=== PATIENT | female | born 1975 | race African-American/Black ===

== ENCOUNTER 2017-07-20 23:46 | Emergency (ER) | payer SELFPAY ==
[~2017-07-20] VITALS: Ht 162.6 cm; Wt 111.2 kg
[~2017-07-20 23:46] MED LIST: AMIO200T42 PO; AMLO5TAB2 PO; ASPI-515 NG; CARV12.52 PO; CARV12.543 PO; DOCU-131 PO; DOXY100T PO; FURO-92 PO; HYDR-3237 PO; HYDR12.547 PO; LISI-170 PO; METO-282 PO; OXYCODONE PO; POTA20TA14 PO; VITAMIN D PO; WARF-36 PO
[2017-07-20 23:47] VITALS: BP 164/100
[2017-07-21] MEDS ORDERED: FLUORESCEIN OPHTHALMIC 1 MG STRIP ONE (00:03)
[2017-07-21] MEDS ORDERED: PROPARACAINE OPHTH 0.5%, 15ML ONE (00:03)
[2017-07-21] MEDS ORDERED: FLUORESCEIN OPHTHALMIC 1 MG STRIP EACHEYE ONE (00:30)
[2017-07-21] MEDS ORDERED: PROPARACAINE OPHTH 0.5%, 15ML EACHEYE ONE (00:30)
== END 2017-07-21 00:41 | disposition home or self-care (01) ==
LOC: ED 07-21 00:20
DX: L03.213 Periorbital cellulitis (principal); H10.022 Other mucopurulent conjunctivitis, left eye; I10 Essential (primary) hypertension; F32.9 Major depressive disorder, single episode, unspecified; Z95.2 Presence of prosthetic heart valve
CPT/HCPCS: 99283

== ENCOUNTER → 2018-02-01 | Outpatient (CLI) | payer MEDICAID ==
[~2018-02-01] MED LIST changes: -AMLO5TAB2 PO; +AMLO5TAB7 PO
== END | disposition home or self-care (01) ==
LOC: CFH 13:04
PROVIDERS: ATTEND Internal Medicine Cardiovascular Disease
DX: I08.0 Rheumatic disorders of both mitral and aortic valves (principal); I11.9 Hypertensive heart disease without heart failure; I42.0 Dilated cardiomyopathy; R06.02 Shortness of breath; Z95.2 Presence of prosthetic heart valve
CPT/HCPCS: 93306

== ENCOUNTER → 2018-08-16 | Outpatient (CLI) | payer MEDICAID ==
[~2018-08-16] MED LIST changes: +AMLO-150 PO; -AMLO5TAB7 PO
== END | disposition home or self-care (01) ==
LOC: CVU 08:46
PROVIDERS: ATTEND Internal Medicine Cardiovascular Disease
DX: I08.8 Other rheumatic multiple valve diseases (principal); I10 Essential (primary) hypertension
CPT/HCPCS: 93306

== ENCOUNTER 2020-09-04 15:46 | Emergency (ER) | payer BC, OTHER ==
[~2020-09-04] VITALS: Ht 162.6 cm; Wt 121.8 kg
[~2020-09-04 15:46] MED LIST changes: -ASPI-515 NG; +ASPI-963 NG
[2020-09-04 15:49] VITALS: BP 185/89
[2020-09-04] MEDS ORDERED: OXYcodone/APAP 5/325MG TABLET ONE (15:59)
[2020-09-04] MEDS ORDERED: OXYcodone/APAP 5/325MG TABLET PO ONE (16:00)
--- NOTE | 2020-09-04 16:03 | NUR ---
[employer] ANALYST PER MAR.
== END 2020-09-04 17:09 | disposition home or self-care (01) ==
LOC: ED 16:23
DX: K04.7 Periapical abscess without sinus (principal); I11.0 Hypertensive heart disease with heart failure; I50.9 Heart failure, unspecified
CPT/HCPCS: 99283

== ENCOUNTER 2020-12-18 13:25 | Emergency (ER) | payer OTHER ==
[~2020-12-18] VITALS: Ht 162.6 cm; Wt 116.0 kg
[2020-12-18 14:10] VITALS: BP 114/75
== END 2020-12-18 14:35 | disposition home or self-care (01) ==
LOC: ED 14:14
DX: U07.1 COVID-19 (principal); J06.9 Acute upper respiratory infection, unspecified; I10 Essential (primary) hypertension
CPT/HCPCS: 99283; U0003; U0005

== ENCOUNTER 2020-12-26 11:43 | Emergency (ER) | payer OTHER ==
[~2020-12-26] VITALS: Ht 162.6 cm; Wt 112.2 kg
[2020-12-26] MEDS ORDERED: SODIUM CHLORIDE 0.9% 1,000ML IVBOLUS ONE (12:00)
[2020-12-26 12:26] LABS: BASOPHILS % (AUTO) 1 % (0-1); EOSINOPHILS % (AUTO) 1 % (1-7); LYMPHOCYTES % (AUTO) 31 % (22-44); MEAN CORPUSCULAR HEMOGLOBIN 31.2 pg (27.0-34.8); MEAN CORPUSCULAR HGB CONC 34.5 g/dL (32.4-35.8); MEAN PLATELET VOLUME 7.6 fL (7.4-10.4); MONOCYTES % (AUTO) 11 % (2-9); NEUTROPHILS % (AUTO) 56 % (42-75); PLATELET COUNT 524 x10^3/uL (130-400); RED BLOOD COUNT 4.33 x10^6/uL (3.82-5.3); RED CELL DISTRIBUTION WIDTH 13.5 % (9.6-15.2)
[2020-12-26 12:37] LABS: ANION GAP 10 mmol/L (5-15); CALCIUM 9.6 mg/dL (8.5-10.1); CHLORIDE 107 mmol/L (98-107)
[2020-12-26 12:39] LABS: ALANINE AMINOTRANSFERASE 27 U/L (12-78); ALKALINE PHOSPHATASE 88 U/L (45-117); BILIRUBIN,TOTAL 0.5 mg/dL (0.2-1.0); CREATININE 1.05 mg/dL (0.55-1.02); TOTAL PROTEIN 8.3 g/dL (6.4-8.2)
[2020-12-26 15:20] VITALS: BP 137/83
--- NOTE | 2020-12-26 15:24 | NUR ---
TRIAGE TECH: PT CALLED FOR SECOND SET OF VITALS.
--- NOTE | 2020-12-26 16:00 | NUR ---
PT BROUGHT BACK TO ROOM VIA WC WITH BOX CUTTER.
--- NOTE | 2020-12-26 16:25 | NUR ---
PT AMBULATED OUT OF ED AFTER RECEIVING DISCHARGE INSTRUCTIONS FROM ERP.
== END 2020-12-26 16:27 | disposition home or self-care (01) ==
LOC: ED 16:02
DX: U07.1 COVID-19 (principal); J18.9 Pneumonia, unspecified organism; I10 Essential (primary) hypertension
CPT/HCPCS: 36415; 71045; 80053; 85025; 99284